=== PATIENT | male | born 1995 | race Hispanic/Latino ===

== ENCOUNTER 2021-08-07 17:39 | Emergency (ER) | payer OTHER, SELFPAY ==
[2021-08-07 17:51] VITALS: BP 130/75; PULSE 75; RESP 20; TEMP 37.2; O2SAT 100
[2021-08-07 18:12] LABS: Appearance Urine UA SL CLOUDY; Bilirubin Urine UA NEGATIVE (NEGATIVE); Color Urine UA YELLOW; Glucose Urine UA NEGATIVE (Negative); Ketones Urine UA NEGATIVE (NEGATIVE); Leukocyte Esterase Urine UA NEGATIVE (NEGATIVE); Nitrite Urine UA NEGATIVE (Negative); Occult Blood Urine UA 2+ (Negative); Protein Urine UA TRACE (Negative); Urobilinogen Urine UA 0.2 E.U./dL (0.2)
[2021-08-07 18:29] LABS: Amorphous Sediment Urine 1+; Bacteria Urine None Seen; Culture Indicated Urine Cult Not Indicated; RBC Urine 1-5/HPF (0-5/HPF); Squamous Epithelial Cell Urine 0-1 /HPF (0-5/HPF); WBC Urine 0-1/HPF (0-5/HPF)
--- NOTE | 2021-08-07 19:20 | DI.US.S_ITS ---
PROCEDURE: US SCROTUM INDICATIONS: TESTICULAR PAIN TECHNIQUE: Real-time scanning was performed of the scrotum and testicles, with image documentation. Color and pulse Doppler interrogation was performed of both testicles. COMPARISON: None. FINDINGS: Right: Testicle measures 4.1 x 2.7 x 2.6 cm and appears homogenous in echotexture. Epididymis is normal in overall size and morphology. No hydrocele or varicoceles. Overlying scrotal skin is normal in thickness. Left: Testicle measures 3.9 x 2.5 x 2.6 cm and appears homogeneous in echotexture. Epididymis is normal in overall size and morphology. There is suggestion of mild increased vascularity within the epididymis. No hydrocele. There is a left varicocele measuring up to approximately 0.4 cm with increased vascularity during Valsalva. Overlying scrotal skin is normal in thickness. Doppler: Color and pulse Doppler demonstrate patent arterial and venous flow within the testicles bilaterally. No definite asymmetrically increased flow demonstrated. IMPRESSION: 1. Left varicocele demonstrated. 2. Mild increased vascularity within the left epididymis may reflect a possible mild epididymitis. Dictated by: Cholo Alicea M.D. on 08/07/2021 at 20:45 Approved by: Cholo Alicea M.D. on 08/07/2021 at 20:49
--- NOTE | 2021-08-07 20:45 | ED_ITS ---
HPI - Male Genitourinary General Chief complaint: Urogenital-Male Stated complaint: SCROTAL AND LEFT TESICULAR PAIN Time Seen by Provider: 08/07/21 19:19 Source: patient Mode of arrival: Ambulatory History of Present Illness HPI Narrative: 26-year-old male presents with his and a chief complaint of left testicular pain for the past day or 2. He denies any trauma or injury. He states the pain is worse when he moves and with palpation. Additionally he complains of dysuria off and on for some time. He denies any penile discharge. He has no fever chills nor nausea, vomiting or diarrhea. He has no chest pain or shortness of breath. Related Data Previous Rx's Medication Instructions Recorded levofloxacin 750 mg tablet 750 mg PO DAILY 10 Days tab 08/07/21 Allergies Allergy/AdvReac Type Severity Reaction Status Date / Time No Known Drug Allergies Allergy Verified 08/07/21 17:53 Review of Systems Review of Systems Narrative: GENERAL: See HPI HEENT: Denies sinus pain, ear pain, sore throat, difficulty swallowing, dizzin ess. RESPIRATORY: Denies dyspnea, cough, wheezing, hemoptysis, sputum. CARDIOVASCULAR: Denies chest pain, palpitations, orthopnea, edema, GASTROINTESTINAL: Denies nausea, vomiting, abdominal pain, diarrhea, constipation, melena. : See HPI MUSCULOSKELETAL: denies weakness, joint pain, or bony pain SKIN: Denies rash, skin lesions, or other NEUROLOGIC: Denies weakness, headache, numbness, change in speech, confusion, seizures, incoordination. PSYCHIATRIC: No concerning psychosocial issues. 12 point review of systems is negative except for those stated above Exam Narrative Exam Narrative: GENERAL: [26] year old patient appears stated age. Well-developed patient, in no obvious distress. HEAD: Atraumatic. Normocephalic. EYES: Pupils equal round and reactive. Extraocular motions intact. No scleral icterus. No injection or drainage. ENT: Nose without bleeding, purulent drainage. Throat without erythema, tonsillar hypertrophy or exudate. Airway patent. NECK: Trachea midline. Non tender CARDIOVASCULAR: Regular rate and rhythm without murmurs, gallops, or rubs. RESPIRATORY: Clear to auscultation. Breath sounds equal bilaterally. No wheezes, rales, or rhonchi. GASTROINTESTINAL: Abdomen soft, non-tender, nondistended. : no penile lesions, swelling, drainage. L testicle tender to palpate at superior pole, no obvious swelling, erythema or other abnormal finding. No obvious inguinal tenderness or swelling to suggest hernia EXTREMITIES: No edema or joint tenderness. BACK: Nontender without deformity or crepitance. No flank tenderness. NEURO: AOx3. SKIN: No rash or erythema of visible areas Initial Vital Signs Initial Vital Signs: Vital Signs Temperature 98.9 F 08/07/21 17:51 Pulse Rate 75 08/07/21 17:51 Respiratory Rate 20 08/07/21 17:51 Blood Pressure 130/75 08/07/21 17:51 Pulse Oximetry 100 08/07/21 17:51 Course Orders Ordered: ED Orders 08/07/21 18:05 Chlamydia Gonorrhea PCR -URINE Stat Urinalysis and Microscopic Stat 08/07/21 19:20 US scrotum Stat Discontinued Medications Hydrocodone Bitart/Acetaminophen (Hydrocodone/Acet 5/325 Prepack) 1 bottle MISC SEEINSTR ONE Stop: 08/07/21 21:49 Last Admin: 08/07/21 22:01 Dose: 1 bottle Documented by: FERNANDEZ Ceftriaxone Sodium (Ceftriaxone 1,000 Mg Vial) 500 mg IM NOW ONE Stop: 08/07/21 21:49 Last Admin: 08/07/21 22:01 Dose: 500 mg Documented by: FERNANDEZ Levofloxacin (Levofloxacin 250 Mg Tablet) 500 mg PO NOW ONE Stop: 08/07/21 21:49 Last Admin: 08/07/21 22:01 Dose: 500 mg Documented by: FERNANDEZ Lidocaine HCl (Lidocaine 1% (Pf) 5 Ml) 2.1 ml INJ NOW ONE Stop: 08/07/21 21:49 Last Admin: 08/07/21 22:02 Dose: 2.1 ml Documented by: FERNANDEZ Vital Signs Vital signs: Vital Signs - 8 hr 08/07/21 21:03 08/07/21 21:04 Pulse Rate 68 Blood Pressure 111/70 Pulse Oximetry 94 99 MDM - Male Genitourinary Lab Data Labs: Lab Results 08/07/21 08/07/21 Range/Units 18:05 18:05 Urine Color Yellow Urine Appearance Sl cloudy Urine pH 7.0 (4.5-8.0) Ur Specific Dalton 1.020 (1.000-1.035) Urine Protein Trace H (Negative) Urine Glucose (UA) Negative (Negative) g/dL Urine Ketones Negative (NEGATIVE) Urine Occult Blood 2+ H (Negative) Urine Nitrate Negative (Negative) Urine Bilirubin Negative (NEGATIVE) Urine Urobilinogen 0.2 (0.2) E.U./dL Ur Leukocyte Esterase Negative (NEGATIVE) Urine RBC 1-5/hpf (0-5/HPF) Urine WBC 0-1/hpf (0-5/HPF) Ur Squamous Epith Cells 0-1 /hpf (0-5/HPF) Amorphous Sediment 1+ Urine Bacteria None seen (None) Ur Culture Indicated? Cult not indicated Ur Chlamydia DNA (PCR) Not detected N gonorrhoeae DNA (PCR) Not detected Imaging Data Scrotal US: Radiologist's Impression: Jaciel Johnson??26??M??1995 ? Allergy/Adv: No Known Drug Allergies (More??) Close Scrotum Ultrasound (Signed) AliceaJose holdenel - 08/07/21 Launch?[place] [address] Ultrasound Report Signed Patient: Jaciel Johnson MR#: [id number] : 1995 Acct:[id number] Age/Sex: 26 / M Date of Service: 08/07/21 Loc: ED Accession Number: [id number] ?? Procedure: US scrotum Ordering Provider: Allie Prater PROCEDURE:? US SCROTUM ? INDICATIONS:? TESTICULAR PAIN ? TECHNIQUE:? Real-time scanning was performed of the scrotum and testicles, with image documentation.? Color and pulse Doppler interrogation was performed of both testicles.? ? COMPARISON:? None. ? FINDINGS:? ? Right:? Testicle measures 4.1 x 2.7 x 2.6 cm and appears homogenous in echotexture.? Epididymis is normal in overall size and morphology.? No hydrocele or varicoceles.? Overlying scrotal skin is normal in thickness.? ? Left:? Testicle measures 3.9 x 2.5 x 2.6 cm and appears homogeneous in echotexture.? Epididymis is normal in overall size and morphology.? There is suggestion of mild increased vascularity within the epididymis.? No hydrocele.? There is a left varicocele measuring up to approximately 0.4 cm with increased vascularity during Valsalva.? Overlying scrotal skin is normal in thickness.? ? Doppler:? Color and pulse Doppler demonstrate patent arterial and venous flow within the testicles bilaterally.? No definite asymmetrically increased flow demonstrated. ? IMPRESSION:? ? 1. Left varicocele demonstrated. ? 2. Mild increased vascularity within the left epididymis may reflect a possible mild epididymitis. ? ? Dictated by: Cholo Alicea M.D. on 08/07/2021 at 20:45 ? ? Approved by: Cholo Alicea M.D. on 08/07/2021 at 20:49 ? MDM Narrative Medical decision making narrative: Patient with left testicular pain in the absence of injury with reassuring urine. US notes varicocele and left-sided epididymitis. He does engage in anal intercourse and ABX tx for epididymitis reflects this. There is no evidence of torsion or incarcerated hernia. Varicocele is noted. Diagnosis discussed with patient and spouse. Return precautions discussed and importance of follow-up. Questions answered to their apparent satisfaction Discharge Plan Departure Patient Disposition: Home Clinical Impression: Epididymitis, Left varicocele Instructions: Epididymitis, Varicocele Activity Restrictions/Additional Instructions: *You have been diagnosed with [acute epididymitis and left sided varicocele *What to do: *Please continue to take your regular medications as directed. [x ] New medication prescriptions sent to your pharmacy: [[facility] in [place] ] [ ] New medication written as a paper prescription [ ] No new medications given *Please follow up with your primary care provider in 2-3 days, call for an appointment. Let them know you were seen in the Emergency Department and that we ask that you be seen in follow up. We will electronically transmit a record of today's note if your PCP is in our system *I have also included the contact info for on-call Urology as we discussed, this is another appropriate option for follow-up *Return to Emergency Department if you should have any new, worsening or concerning symptoms, such as [fever greater than 101 F, shaking chills, worsening pain, persistent vomiting or other bothersome symptoms] Prescriptions: New levofloxacin 750 mg tablet 750 mg PO DAILY 10 Days 0RF Referrals: Mary Carbone MD [Physician] -
[2021-08-07 21:03] VITALS: O2SAT 94
[2021-08-07 21:04] VITALS: BP 111/70; PULSE 68; O2SAT 99
[2021-08-07 21:13] LABS: Urine N gonorrhoeae NOT DETECTED
[2021-08-07 21:14] LABS: Urine Chlamydia NOT DETECTED
[2021-08-07] MEDS: HYDROCODONE/ACET 5/325 PREPACK 1 BOTTLE MISC (22:01)
[2021-08-07] MEDS: cefTRIAXone 1,000 MG VIAL 500 MG IM (22:01)
[2021-08-07] MEDS: levoFLOXacin 250 MG TABLET 500 MG PO (22:01)
[2021-08-07] MEDS: LIDOCAINE 1% (PF) 5 ML 2.1 ML INJ (22:02)
== END 2021-08-07 22:11 | disposition home or self-care (01) ==
PROVIDERS: Emergency Medicine; Nurse Practitioner Critical Care Medicine; Emergency Provider Emergency Medicine
DX: N45.1 Epididymitis (principal); I86.1 Scrotal varices
CPT/HCPCS: 76870; 81001; 87491; 87591; 96372; 99283; J0696

== ENCOUNTER 2023-07-15 11:20 | Day surgery (SDC) | payer OTHER, SELFPAY ==
[2023-07-15] VITALS (9 sets, daily range): BP systolic 83–118; BP diastolic 33–70; PULSE 50–65; RESP 12–22; TEMP 36.2–36.5; O2SAT 97–100
--- NOTE | 2023-07-15 | PATH_ITS ---
[facility] Accession Number: [id number] No. of containers..02 Tissue . 01 Material submitted: . PART A: stomach - ANTRUM BIOPSY PART B: esophagus, E-G Junction - GEJ BIOPSY . 01 Diagnosis: A. Stomach, antrum, biopsy: Benign gastric mucosa. No H. Pylori like organisms identified (on the H/E- stained sections). Negative for gastritis, intestinal metaplasia, dysplasia, or malignancy. -- B. GE junction, biopsy: Columnar epithelium, negative for intestinal metaplasia. Squamous epithelium, negative for increased intraepithelial eosinophils. Negative for dysplasia or malignancy. . TXN 07/19/2023 1246 Local . 01 Electronically signed: . Drew Muir MD, Pathologist NPI- [id number] . 01 Gross description: . Part A: ANTRUM BIOPSY: Received in formalin is 1 fragment(s) of levy, soft tissue measuring 0.3 x 0.2 x 0.2 cm submitted entirely in 1 cassette(s) Part B: GEJ BIOPSY: Received in formalin is 1 fragment(s) of levy, soft tissue measuring 0.1 x 0.1 x 0.1 cm submitted entirely in 1 cassette(s) /RUBENS 07/16/2023 1910 Local . 01 Pathologist provided ICD-10: R10.13 . 01 CPT . 869134, 590874 Specimen Comment: A courtesy copy of this report has been sent to [phone] Performed at: 01 [facility] [address] [place] [address], [place], [place] [id number] MD Cholo Angelo MD Phone: [phone]
[2023-07-15] MEDS: LACTATED RINGERS 1,000 ML 42 ML IV ×2 (11:50→14:12)
--- NOTE | 2023-07-15 13:06 | P.HP_ITS ---
History of Present Illness History of Present Illness Date Patient Seen: 07/15/23 Time Patient Seen: 13:06 [place] [facility] [place]ative: 28-year-old here for upper endoscopy. I recently saw the patient in clinic. He has had a slight improvement but still has nocturnal breakthrough symptoms of reflux. It turns out he is taking his evening dose of omeprazole after dinner. For the refractory nature of his symptoms, upper endoscopy is pursued [facility] Medical History History of gastroesophageal reflux (GERD) Social History Smoking Status: Never smoker alcohol intake: never Meds Home Medications and Allergies Home Medications Medication Instructions Recorded Confirmed Type omeprazole 20 mg capsule,delayed 40 mg PO BID 07/15/23 07/15/23 History release Allergies Allergy/AdvReac Type Severity Reaction Status Date / Time No Known Drug Allergies Allergy Verified 07/15/23 11:38 Review of Systems Review of Systems ROS: Yes All systems reviewed with the patient and are negative except as otherwise documented Exam Vital Signs (past 8 hours): - 07/15/23 11:40 Temperature 97.2 F L Pulse Rate 61 Respiratory Rate 16 Blood Pressure 118/70 Pulse Oximetry 100 Oxygen Delivery Method Room Air Oxygen Delivery Method Room Air Const General: cooperative HENMT Head: normal to inspection Eyes General: appearance normal, both eyes and all related structures Neck Neck: normal visual inspection Chest Chest: normal inspection of the chest Resp Effort & Inspection: normal respiratory effort Cardio Rate: regular rate GI Inspection: normal to inspection Skin General: no rashes or lesions noted Neuro General: patient alert and patient awake Extrem General: normal to inspection and no pedal edema Psych Appearance: grossly normal Assessment & Plan Assessment & Plan narrative: 28-year-old male with refractory reflux. Diagnostic EGD is pursued today.
--- NOTE | 2023-07-15 13:08 | PM.PREOP ---
Pre-operative Note Interval Note History & Physical reviewed/Exam performed by Physician: Yes Changes to H&P: Yes H&P completed within 30 days and has changed as indicated here:: See H&P note ASA Class (for procedural sedation): I
--- NOTE | 2023-07-15 13:46 | PM.OP.EGD ---
Operative Date/Time/Diagnoses Date of procedure: 07/15/23 Time of procedure: 13:46 Pre-op diagnosis: Refractory reflux Post-op diagnosis: same Procedure & Clinicians Study performed: EGD with biopsies Same procedure as scheduled: Yes Indications: Refractory reflux Surgeon: Yemi Norwood Procedure Notes SCOAP/Timeout: Done Procedure in detail: After the risks and benefits were explained, written and verbal informed consent was obtained. The patient was brought into the procedure room and placed into the left lateral decubitus position. Please see anesthesia notes for sedation details. The scope was introduced into the mouth through the bite block and advanced under direct visualization to the 2nd portion of the duodenum. The scope was slowly withdrawn carefully examining the mucosa for any defects or lesions. Retroflexed views were accomplished in the stomach. The stomach was decompressed, the scope was then removed from the patient who tolerated the procedure well. Sedation minutes: 7 Complications: none Impression: 1. Duodenum: This was normal from the bulb through the 2nd portion. 2. Stomach: No gastric outlet obstruction. No ulcers no mass lesions. Mild erythema in the antrum and biopsy was acquired for exclusion of H pylori or other pathology. Retroflexed views of the LES were unremarkable. 3. Esophagus: The squamocolumnar junction correlated with the top of the gastric folds. GEJ was at 39 cm from the incisors. The Z-line was slightly variable and I suspect this may simply reflect healed esophagitis. There was no evidence of any active esophagitis. I took a biopsy of the most proximal aspect of the salmon-colored mucosa to exclude specialized intestinal metaplasia. No stricturing no mass lesions. The remainder of the esophagus looked normal. Endoscopic diagnosis 1. Mild gastropathy 2. Slightly irregular [id number] 3. Otherwise visually unremarkable EGD Post-procedure Plan for aftercare: 1. Await histology. 2. Continue anti-reflux therapy. Consider altering the time that you take the omeprazole in the evening. This should be done 30-60 minutes before the last meal of the day. Once symptoms are fully under control, attempt to reduce omeprazole as able in the weeks ahead. Disposition: PACU
--- NOTE | 2023-07-15 14:39 | SUR.PHASEII ---
Pt given discharge instructions. Pt denies pain and nausea . No complaints voiced. No distress noted. Pt states he is ready to go.
== END 2023-07-15 14:35 | disposition home or self-care (01) ==
PROVIDERS: Referring Provider Internal Medicine Gastroenterology; Visit Provider Internal Medicine Gastroenterology
PROC: 0DJ08ZZ Inspection of Upper Intestinal Tract, Via Natural or Artificial Opening Endoscopic (ICD-10-PCS; CPT 43239; principal; 2023-07-15 13:30)
DX: K21.9 Gastro-esophageal reflux disease without esophagitis (principal); K31.9 Disease of stomach and duodenum, unspecified
CPT/HCPCS: 43239; J2704